=== PATIENT | female | born 2000 | race African-American/Black ===

== ENCOUNTER 2022-01-02 03:00 | Emergency (ER) | payer OTHER ==
[2022-01-02 03:11] VITALS: RESP 16; TEMP 98
[2022-01-02] MEDS ORDERED: ONDANSETRON ODT 4 MG TAB PO STA (03:30)
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
[2022-01-02 05:09] LABS: Appearance,Urine Cloudy (Clear); Bacteria,Urine Rare /hpf; Bilirubin,Urine Negative (Negative); Blood,Urine Trace (Negative); Color,Urine Light Yellow; Glucose,Urine (UA) Negative (Negative); Ketones,Urine 1+ (Negative); Leukocyte Esterase,Urine Moderate (Negative); Mucus,Urine Rare /hpf; Nitrite,Urine Negative (Negative); Protein,Urine Negative (Negative); RBC,Urine 1 /hpf (0-5); Specific Gravity,Urine 1.008 (1.001-1.035); Squamous Epithelial Cell,Urine 4 /hpf (0-4); Urobilinogen,Urine <2.0 mg/dL (<2.0); WBC,Urine 5 /hpf (0-5)
[2022-01-02 05:35] LABS: Amphetamine Screen,Urine Not Detected (NotDetected); Barbiturate Screen,Urine Not Detected (NotDetected); Benzodiazepines Screen,Urine Not Detected (NotDetected); Cocaine Screen,Urine Not Detected (NotDetected); Methadone Screen, Urine Not Detected (NotDetected); Opiate Screen,Urine Not Detected (NotDetected); Oxycodone Screen, Urine Not Detected (NotDetected); Phencyclidine Screen,Urine Not Detected (NotDetected); Tricyclic Antidepressant,Urine Not Detected (NotDetected); Urn Cannabinoid Scrn Not Detected (NotDetected)
--- NOTE | 2022-01-02 06:02 | XR ---
EXAMINATION TYPE: XR ribs RT w pa chest xray DATE OF EXAM: 01/02/2022 COMPARISON: NONE HISTORY: Pain TECHNIQUE: 3 views FINDINGS: Heart and mediastinum are normal. Lungs are clear. Diaphragm is normal. Bony thorax appears normal. The right ribs are intact. No pleural effusion or pneumothorax. IMPRESSION: Normal chest. Normal right ribs.
[2022-01-02 06:58] VITALS: BP 108/71; PULSE 78
== END 2022-01-02 06:58 | disposition home or self-care (01) ==
LOC: EC 03:00
DX: R07.81 Pleurodynia (principal); R11.2 Nausea with vomiting, unspecified; R10.9 Unspecified abdominal pain
CPT/HCPCS: 80306; 81001; 81025; 99284